=== PATIENT | female | born 1995 | race Caucasian/White ===

== ENCOUNTER 2020-12-07 21:52 | Emergency (ER) | payer MEDICAID ==
[~2020-12-07] VITALS: Ht 160 cm; Wt 58.0 kg
[2020-12-07 23:52] LABS: CLARITY URINE CLEAR (CLEAR); COLOR URINE YELLOW (YELLOW); KETONES URINE NEGATIVE (NEGATIVE); LEUKOCYTE ESTERASE URINE NEGATIVE (NEGATIVE); NITRITE URINE NEGATIVE (NEGATIVE); OCCULT BLOOD URINE 2+ (NEGATIVE); PROTEIN URINE NEGATIVE (NEGATIVE); SPECIFIC GRAVITY URINE 1.024 (1.005-1.030); UROBILINOGEN URINE 0.2 E.U./dL (0.2-1.0)
[2020-12-08 00:33] LABS: EOSINOPHILS % 1.7 % (0.0-5.0); HEMATOCRIT. 32.6 % (36.0-48.0); HEMOGLOBIN. 11.6 g/dL (12.0-16.0); LYMPHOCYTES % 27.2 % (20.0-50.0); MEAN CORPUSCULAR HEMOGLOBIN 29.6 pg (28.0-32.0); MEAN CORPUSCULAR VOLUME 83.5 fL (81.0-99.0); MEAN PLATELET VOLUME 7.3 fl (7.4-10.4); MONOCYTES % 4.9 % (2.0-8.0); NEUTROPHILS % 65.2 % (40.0-76.0); PLATELET 282 x1000/uL (130-400); RED BLOOD CELL COUNT 3.91 mill/uL (4.2-5.4)
[2020-12-08 00:40] LABS: CHLORIDE 109 mEq/L (98-107)
[2020-12-08 00:43] LABS: PROTHROMBIN TIME 10.4 sec (9.6-11.0)
[2020-12-08 00:44] LABS: HCG SCREEN POSITIVE
[2020-12-08 01:08] LABS: B-HCG QUANTITATIVE 1394 mIU/mL (<3)
[2020-12-08 03:02] VITALS: BP 100/60
== END 2020-12-08 03:04 | disposition home or self-care (01) ==
LOC: ER 21:52
DX: N93.9 Abnormal uterine and vaginal bleeding, unspecified (principal)
CPT/HCPCS: 36415; 76801; 80053; 81003; 81025; 84702; 84703; 85025; 86850; 86900; 99284

== ENCOUNTER 2021-01-04 00:28 | Emergency (ER) | payer MEDICAID ==
[~2021-01-04] VITALS: Ht 160 cm; Wt 58.0 kg
[2021-01-04 00:49] VITALS: BP 115/57
== END 2021-01-04 04:44 | disposition home or self-care (01) ==
LOC: ER 00:28
DX: N93.9 Abnormal uterine and vaginal bleeding, unspecified (principal); F12.10 Cannabis abuse, uncomplicated; Z32.02 Encounter for pregnancy test, result negative
CPT/HCPCS: 36415; 81025; 84702; 99283